=== PATIENT | female | born 1985 | race Caucasian/White ===

== ENCOUNTER 2019-07-29 19:56 | Emergency (ER) | payer MEDICAID ==
[~2019-07-29] VITALS: Ht 152.4 cm; Wt 71.3 kg
[~2019-07-29 19:56] MED LIST: IBUP-1542 PO; NORE1TAB12 PO; NPH10OT RIGHT EAR
[2019-07-29 19:59] VITALS: Ht 152.4 cm; Wt 71.3 kg
[2019-07-29 23:09] VITALS: BP 156/84; PULSE 81; RESP 16
== END 2019-07-29 23:10 | disposition home or self-care (01) ==
LOC: FTE 19:56
DX: H60.91 Unspecified otitis externa, right ear (principal); H61.21 Impacted cerumen, right ear
CPT/HCPCS: 69209; 81025; Z7502